=== PATIENT | female | born 1990 | race Caucasian/White ===

== ENCOUNTER 2016-12-17 16:42 | Emergency (ER) | payer BC ==
[~2016-12-17] VITALS: Ht 157.5 cm; Wt 74.8 kg
[~2016-12-17 16:42] MED LIST: AMOXICILLIN875 MG PO; CLINDAMYCIN HC300 MG PO; ENALAPRIL MALE2.5 MG PO; KEFLEX500 MG PO; MOTRIN800 MG PO; NAPROXEN500 MG PO; PEN-VEE K,VEET500 MG PO; VICODIN 5-3001 EACH PO
[2016-12-17 16:58] VITALS: BP 135/93
== END 2016-12-17 17:20 | disposition left against medical advice (07) ==
LOC: EME 16:42
DX: Z53.21 Procedure and treatment not carried out due to patient leaving prior to being seen by health care provider (principal)
CPT/HCPCS: 99281

== ENCOUNTER 2017-01-28 08:15 | Emergency (ER) | payer BC ==
[~2017-01-28] VITALS: Ht 154.9 cm; Wt 73.9 kg
[2017-01-28 08:19] VITALS: BP 117/84
== END 2017-01-28 08:36 | disposition left against medical advice (07) ==
LOC: EME 08:15
DX: T50.991A Poisoning by other drugs, medicaments and biological substances, accidental (unintentional), initial encounter (principal); F12.90 Cannabis use, unspecified, uncomplicated; F17.200 Nicotine dependence, unspecified, uncomplicated
CPT/HCPCS: 99281; 99283; J2310

== ENCOUNTER 2017-02-19 07:56 | Emergency (ER) | payer BC ==
[~2017-02-19] VITALS: Ht 154.9 cm; Wt 74.6 kg
[2017-02-19 10:42] LABS: EOSINOPHIL (%) 2.4 % (0-5); EOSINOPHIL COUNT 0.2 K/uL (0-0.3); HEMATOCRIT 39.8 % (36.0-46.0); IMMATURE GRANULOCYTE (%) 0.2 % (0.0-0.7); INSTRUMENT ABS NEUTROPHIL CT 4.9 K/uL; LYMPHOCYTE COUNT 2.4 K/uL (1.0-2.8); MCH 31.4 PG (29.0-34.0); MCHC 33.2 G/DL (30.0-36.0); MCV 94.5 FL (83-99); MEAN PLAT.VOLUME 10.8 uM^3 (9.5-12.4); MONOCYTE (%) 5.8 % (3-12); MONOCYTE COUNT 0.5 K/uL (0-0.8); NEUTROPHIL COUNT 4.9 K/uL (1.8-6.4); PLATELET COUNT 262 K/uL (156-360); RBC DIS.WIDTH-SD 44.6 % (39-53); RED BLOOD COUNT 4.21 M/uL (3.80-5.20); WHITE BLOOD COUNT 8.1 K/uL (4.1-10.2)
[2017-02-19 10:53] LABS: CHLORIDE 112 mEq/L (99-109); SODIUM 144 mEq/L (136-147)
[2017-02-19 10:54] LABS: GLUCOSE 99 mg/dL (70-99)
[2017-02-19 10:56] LABS: ANION GAP 7 MEQ/L (2-14)
[2017-02-19 10:58] LABS: GFR ESTIMATE (CALCULATED) > 59 mL/min/
[2017-02-19 10:59] LABS: UREA NITROGEN (BUN) 12 mg/dL (9-23)
[2017-02-19] MEDS ORDERED: FIORICET 50-301 EAC1 PO (11:27)
[2017-02-19 11:54] VITALS: BP 109/78
== END 2017-02-19 11:56 | disposition home or self-care (01) ==
LOC: EME 07:56
PROVIDERS: Emergency Medicine
DX: R51 Headache (principal); I10 Essential (primary) hypertension; F17.200 Nicotine dependence, unspecified, uncomplicated
CPT/HCPCS: 70450; 80048; 85025; J1885; J2765; J7030

== ENCOUNTER 2017-07-25 21:27 | Emergency (ER) | payer SELFPAY ==
[~2017-07-25] VITALS: Ht 154.9 cm; Wt 83.0 kg
[~2017-07-25 21:27] MED LIST changes: +FIORICET 50-301 EAC1 PO
[2017-07-25] MEDS ORDERED: NAPROSYN500 MG PO (22:06)
[2017-07-25] MEDS ORDERED: ULTRACET1 TABLET PO (22:06)
[2017-07-25] MEDS ORDERED: AUGMENTIN875 MG PO (22:06)
[2017-07-25] MEDS ORDERED: PEN-VEE K,VEET500 MG PO (22:25)
[2017-07-25 22:41] VITALS: BP 141/104
== END 2017-07-25 22:42 | disposition home or self-care (01) ==
LOC: EME 21:27 → EXP 21:27
DX: K02.9 Dental caries, unspecified (principal); F17.200 Nicotine dependence, unspecified, uncomplicated; Z71.6 Tobacco abuse counseling
CPT/HCPCS: 99281; 99284

== ENCOUNTER 2017-08-02 20:39 | Emergency (ER) | payer SELFPAY ==
[~2017-08-02] VITALS: Ht 154.9 cm; Wt 80.1 kg
[~2017-08-02 20:39] MED LIST changes: +AUGMENTIN875 MG PO; +NAPROSYN500 MG PO; +ULTRACET1 TABLET PO
[2017-08-02] MEDS ORDERED: PEN-VEE K,VEET500 MG PO (21:52)
[2017-08-02] MEDS ORDERED: NORCO 5/3251 TABLET PO (21:52)
[2017-08-02 22:06] VITALS: BP 140/95
== END 2017-08-02 22:07 | disposition home or self-care (01) ==
LOC: EME 20:39
DX: K04.7 Periapical abscess without sinus (principal); F17.200 Nicotine dependence, unspecified, uncomplicated; Z88.1 Allergy status to other antibiotic agents
CPT/HCPCS: 99281; 99284

== ENCOUNTER 2017-09-13 06:56 | Emergency (ER) | payer SELFPAY ==
[~2017-09-13] VITALS: Ht 160 cm; Wt 76.0 kg
[~2017-09-13 06:56] MED LIST changes: +NORCO 5/3251 TABLET PO
[2017-09-13 07:29] LABS: HEMATOCRIT 48.3 % (36.0-46.0); HEMOGLOBIN 16.3 G/DL (11.9-15.5); MCHC 33.7 G/DL (30.0-36.0); PLATELET COUNT 274 K/uL (156-360); RBC DIS.WIDTH-CV 12.6 % (11.8-14.6); RBC DIS.WIDTH-SD 42.5 % (39-53); RED BLOOD COUNT 5.25 M/uL (3.80-5.20); WHITE BLOOD COUNT 12.9 K/uL (4.1-10.2)
[2017-09-13 07:46] LABS: APPEARANCE CLOUDY ((CLEAR)); BILIRUBIN NEGATIVE; BLOOD NEGATIVE; COLOR YELLOW ((YELLOW)); GLUCOSE (STRIP) NEGATIVE; KETONES NEGATIVE; LEUKOCYTES NEGATIVE; NITRITE NEGATIVE; PROTEIN (STRIP) NEGATIVE; UROBILINOGEN 0.2 MG/DL (0.2-1.0)
[2017-09-13 07:58] LABS: ALBUMIN 4.4 G/DL (3.2-4.8); ALKALINE PHOSPHATASE 61 IU/L (3-129); ALT (GPT) 9 IU/L (3-49); AMYLASE 51 IU/L (1-118); AST (GOT) 14 IU/L (2-34); CHLORIDE 107 MEQ/L (99-109); CREATININE 0.6 MG/DL (0.6-1.3); GFR ESTIMATE (CALCULATED) > 59 mL/min/; GLUCOSE 108 mg/dL (70-99); LIPASE 23 U/L (1.0-51.0); POTASSIUM 4.4 MEQ/L (3.7-5.4); SODIUM 141 MEQ/L (136-147); TOTAL BILIRUBIN 0.3 MG/DL (0.0-1.0); TOTAL PROTEIN 7.2 G/DL (6.4-8.3); UREA NITROGEN (BUN) 14 mg/dL (9-23)
[2017-09-13 08:26] LABS: BACTERIA 1+ /HPF; EPITHELIAL CELLS 3+ /HPF; MUCUS NONE SEEN /LPF; RED BLOOD CELLS NONE SEEN /HPF (0-5); UCUL ADDED? NO; WHITE BLOOD CELLS NONE SEEN /HPF (0-5)
[2017-09-13 08:27] LABS: AMORPHOUS URATES CRYSTALS 1+
[2017-09-13] MEDS ORDERED: BENTYL20 MG PO (09:46)
[2017-09-13] MEDS ORDERED: ZOFRAN4 MG PO (09:46)
[2017-09-13 10:14] VITALS: BP 139/89
== END 2017-09-13 10:16 | disposition home or self-care (01) ==
LOC: EME 06:56
PROVIDERS: Nurse Practitioner Family
DX: R11.2 Nausea with vomiting, unspecified (principal); R10.9 Unspecified abdominal pain; F17.200 Nicotine dependence, unspecified, uncomplicated; Z88.1 Allergy status to other antibiotic agents
CPT/HCPCS: 76705; 80053; 81003; 82150; 83690; 85027; 99281; 99284; J1885; J2405; J7030